=== PATIENT | male | born 1975 | race Caucasian/White ===

== ENCOUNTER 2016-11-13 14:47 | Emergency (ER) | payer OTHER ==
[~2016-11-13 14:47] MED LIST: NO MEDICATIONS; VOLTAREN75 MG PO
== END 2016-11-13 15:09 | disposition left against medical advice (07) ==
LOC: SED 14:47
DX: T40.1X1A Poisoning by heroin, accidental (unintentional), initial encounter (principal); Z88.1 Allergy status to other antibiotic agents; Z79.899 Other long term (current) drug therapy
CPT/HCPCS: 99282